=== PATIENT | female | born 1930 | race African-American/Black ===

== ENCOUNTER 2017-02-11 00:23 | Emergency (ER) | payer OTHER ==
--- NOTE | 2017-02-11 00:38 | PDOC ---
History of Present Illness - General Chief Complaint: Injury Stated Complaint: FALL Time Seen by Provider: 02/11/17 00:37 History Source: [facility] - History of Present Illness Initial Comments: 02/11/17 04:29 86-year-old female with history of type 2 diabetes, essential hypertension, TIA , CVA with residual deficit was found by jail staff on the floor. Patient was sent for CAT scan of head and x-ray of the left arm which patient reports pain. Denies LOC nausea, vomiting, abdominal pain. Past History - Past Medical History Allergies/Adverse Reactions: Allergies Allergy/AdvReac Type Severity Reaction Status Date / Time No Known Allergies Allergy Verified 02/11/17 00:37 Home Medications: Ambulatory Orders Glycerin/Propylene Glycol [Artificial Tears Drops] 1 drop OP TID 11/13/11 Simvastatin [Zocor] 10 mg PO HS 11/13/11 Polyethylene Glycol 3350 [Miralax 119 gm Btl -] 17 gm PO DAILY #0 bottle Cran/Vitc/Mannose/Fos/Bromeln [Uti-Stat Liquid] 3,875 mg PO BID 01/08/13 Sennosides [Senokot] 2 tab PO HS 01/08/13 Acetaminophen [Tylenol .Regular Strength -] 650 mg PO Q6H PRN #0 tablet Amlodipine Besylate [Norvasc -] 10 mg PO DAILY #0 tablet 01/11/13 Ascorbic Acid [Vitamin C] 500 mg PO DAILY #0 01/11/13 Aspirin [ASA -] 81 mg PO DAILY #0 tab.chew 01/11/13 Atorvastatin Ca [Lipitor] 10 mg PO HS #0 tablet 01/11/13 Docusate Sodium [Colace -] 100 mg PO BID #0 capsule 01/11/13 Heparin - 5,000 unit SQ BID #0 ml 01/11/13 Hypromellose 0.5% Opth Soln [Artificial Tears] 1 drop OU TID #0 drops 01/11/13 Levetiracetam [Keppra -] 500 mg PO BID #0 tablet 01/11/13 Losartan Potassium [Cozaar -] 100 mg PO DAILY #0 tablet 01/11/13 Metformin HCl [Glucophage -] 500 mg PO BIDAC #0 tablet 01/11/13 Multivitamins [Multivit ([facility] Formul[facility])] 1 udtab PO DAILY #0 tab 01/11/13 Cephalexin [Keflex] 500 mg PO BID #20 capsule 02/11/17 CVA: Yes (LT HEMIPLEGIA) Diabetes: Yes HTN: Yes Hypercholesterolemia: Yes Suicide Attempt (Hx): No - Surgical History Orthopedic Surgery: Yes (FR NECK OF FEMUR) - Psycho/Social/Smoking Cessation Hx Anxiety: No Suicidal Ideation: No Smoking Status: No Smoking History: Never smoked Have you smoked in the past 12 months: No Number of Cigarettes Smoked Daily: 0 Information on smoking cessation initiated: No Hx Alcohol Use: No Drug/Substance Use Hx: No Substance Use Type: None Hx Substance Use Treatment: No Review of Systems - Review of Systems Able to Perform ROS?: Yes Is the patient limited Guamanian proficient: No Constitutional: No: Symptoms Reported, See HPI, Chills, Diaphoresis, Fever, Loss of Appetite, Malaise, Night Sweats, Weakness, Weight Stable, Unintentional Wgt. Loss, Unexplained wgt Loss, Other HEENTM: No: Symptoms Reported, See HPI, Eye Pain, Blurred Vision, Tearing, Recent change in vision, Double Vision, Cataracts, Ear Pain, Ocular Prothesis, Ear Discharge, Nose Pain, Nose Congestion, Tinnitus, Nose Bleeding, Hearing Loss , Throat Pain, Throat Swelling, Mouth Pain, Dental Problems, Difficulty Swallowing, Mouth Swelling, Other Respiratory: No: Symptoms reported, See HPI, Cough, Orthopnea, Shortness of Breath, SOB with Exertion, SOB at Rest, Stridor, Wheezing, Productive cough, Hemoptysis, Other Cardiac (ROS): No: Chest Pain ABD/GI: No: Symptoms Reported, See HPI, Abdominal Distended, Abd. Pain w/ defecation, Blood Streaked Bowels, Constipated, Diarrhea, Difficulty Swallowing , Nausea, Poor Appetite, Poor Fluid Intake, Rectal Bleeding, Vomiting, Indigestion, Abdominal cramping, Tarry Stools, Other Musculoskeletal: Yes: Other (left arm pain) *Physical Exam - Vital Signs Last Vital Signs Temp Pulse Resp BP Pulse Ox 97.7 F 82 19 189/87 97 02/11/17 00:31 02/11/17 00:31 02/11/17 00:31 02/11/17 00:02/11/17 00:31 - Physical Exam General Appearance: Yes: Appropriately Dressed HEENT: positive: Normal ENT Inspection Respiratory/Chest: positive: Lungs Clear, Normal Breath Sounds Gastrointestinal/Abdominal: positive: Normal Bowel Sounds, Soft. negative: Tender Extremity: positive: Normal Capillary Refill, Normal Inspection, Pelvis Stable, Other (slight pain with ROM left wrist) Neurologic: positive: Alert ED Treatment Course - LABORATORY CBC & Chemistry Diagram: 02/11/17 03:00 02/11/17 03:00 Progress Note - Progress Note Progress Note: A: elderly fall P: cbc cmp cardiac EKG: NSR [address] head neg: old infarct xray left: degenerative changes Medical Decision Making - Medical Decision Making 02/11/17 06:43 patient is cleared for discharge. 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 Powell *DC/Admit/Observation/Transfer Diagnosis at time of Disposition: Fall in elderly patient, Left upper arm pain - Discharge Dispostion Disposition: [facility] F[facility] Condition at time of disposition: Fair - Prescriptions Prescriptions: Cephalexin [Keflex] 500 mg PO BID #20 capsule - Referrals Referrals: Kilo August MD [Primary Care Provider] - - Patient Instructions Printed Discharge Instructions: How to Prevent Falls Additional Instructions: CT head: negative XRays : negative All labs wnl. patient is cleared for discharge and to have follow up by Abby Perry.
[2017-02-11 00:39] VITALS: TEMP 97.7; BMI 29.1
--- NOTE | 2017-02-11 01:01 | PDOC ---
*Physical Exam - Vital Signs Last Vital Signs Temp Pulse Resp BP Pulse Ox 97.7 F 82 19 189/87 97 02/11/17 00:31 02/11/17 00:31 02/11/17 00:31 02/11/17 00:31 02/11/17 00:31 ED Treatment Course - LABORATORY CBC & Chemistry Diagram: 02/11/17 03:00 02/11/17 03:00 Medical Decision Making - Medical Decision Making 02/11/17 01:00 agree with care from MARTINE Ch *DC/Admit/Observation/Transfer Diagnosis at time of Disposition: Fall in elderly patient, Left upper arm pain - Discharge Dispostion Disposition: SNF FACILITY Condition at time of disposition: Stable - Prescriptions Prescriptions: Cephalexin [Keflex] 500 mg PO BID #20 capsule - Referrals Referrals: Kilo August MD [Primary Care Provider] - - Patient Instructions Printed Discharge Instructions: How to Prevent Falls Additional Instructions: CT head: negative XRays : negative All labs wnl. patient is cleared for discharge and to have follow up by Abby Velascocijoey.
[2017-02-11] MEDS ORDERED: ASPIRIN 81 MG CHEWABLE TABLETS PO ONE (03:37)
[2017-02-11 04:12] LABS: BASOPHIL 1.1 % (0-2.0); EOSINOPHIL 0.8 % (0-4.5); MCH 28.6 pg (25.7-33.7); MCHC 32.2 g/dl (32.0-36.0); MEAN CELL VOLUME 88.6 fl (80-96); NEUTROPHILS 66.4 % (42.8-82.8); PLATELET COUNT 332 K/MM3 (134-434); RDW 14.4 % (11.6-15.6); WHITE BLOOD COUNT 8.1 K/mm3 (4.0-10.0)
[2017-02-11 04:30] LABS: INR 1.07 (0.82-1.09); PROTHROMBIN TIME (PATIENT) 11.8 SEC (9.98-11.88)
[2017-02-11 04:42] LABS: ALBUMIN 3.7 g/dl (3.4-5.0); ANION GAP 8 (8-16); BILIRUBIN,TOTAL 0.5 mg/dL (0.2-1.0); CALCIUM 9.6 mg/dL (8.5-10.1); CO2 28 mmol/L (21-32); CREATININE 0.7 mg/dL (0.55-1.02); GLUCOSE,RANDOM 107 mg/dL (74-106); MAGNESIUM 1.5 mg/dL (1.8-2.4); SGOT/AST 12 U/L (15-37); SGPT/ALT 14 U/L (12-78)
[2017-02-11 04:44] LABS: ALK PHOS 62 U/L (45-117); TROPONIN I < 0.02 ng/ml (0.00-0.05)
[2017-02-11 06:23] LABS: URINE APPEARANCE SLCLOUDY; URINE BILIRUBIN NEGATIVE (NEGATIVE); URINE BLOOD 1+ (NEGATIVE); URINE COLOR YELLOW; URINE GLUCOSE (UA) NEGATIVE (NEGATIVE); URINE KETONE NEGATIVE (NEGATIVE); URINE NITRITE NEGATIVE (NEGATIVE); URINE PROTEIN NEGATIVE (NEGATIVE); URINE UROBILINOGEN NEGATIVE mg/dL (0.2-1.0)
[2017-02-11 06:39] LABS: URINE LEUK ESTERASE 1+ (NEGATIVE)
[2017-02-11 06:40] LABS: URINE BACTERIA MANY /hpf (NONE SEEN); URINE HYALINE CAST 1 /lpf; URINE MUCUS RARE; URINE RBC 4 /hpf (0-3); URINE WBC 52 /hpf (3-5)
[2017-02-11 07:02] VITALS: BP 154/79; PULSE 88
--- NOTE | 2017-02-11 13:01 | EKG ---
Test Reason : Blood Pressure : / mmHG Vent. Rate : 069 BPM Atrial Rate : 069 BPM P-R Int : 204 ms QRS Dur : 086 ms QT Int : 388 ms P-R-T Axes : 089 -22 040 degrees QTc Int : 415 ms NORMAL SINUS RHYTHM SEPTAL INFARCT (CITED ON OR BEFORE 13-NOV-2011) ABNORMAL ECG WHEN COMPARED WITH ECG OF 13-NOV-2011 20:08, NO SIGNIFICANT CHANGE WAS FOUND Confirmed by ANNA MARINELLI MD ([id number]) on 02/11/2017 1:00:57 PM Referred By: Confirmed By:ANNA MARINELLI MD
== END 2017-02-11 07:47 ==
LOC: JER 00:23
DX: M79.622 Pain in left upper arm (principal); W18.30XA Fall on same level, unspecified, initial encounter; Y93.9 Activity, unspecified; Y92.129 Unspecified place in nursing home as the place of occurrence of the external cause; E11.9 Type 2 diabetes mellitus without complications; I10 Essential (primary) hypertension; Z86.73 Personal history of transient ischemic attack (TIA), and cerebral infarction without residual deficits; E78.00 Pure hypercholesterolemia, unspecified; Z79.01 Long term (current) use of anticoagulants
CPT/HCPCS: 36415; 70450-TC; 73030-TC-LT; 73060-TC-LT; 73110-TC-LT; 73130-TC-LT; 80053; 81003; 81015; 82550; 83735; 84484; 85025; 85610; 93005; 93010; 99281-25

== ENCOUNTER 2019-07-26 09:00 | Emergency (ER) | payer OTHER ==
[2019-07-26 09:10] VITALS: TEMP 98; BMI 25.7
--- NOTE | 2019-07-26 09:28 | EKG ---
Test Reason : Blood Pressure : / mmHG Vent. Rate : 065 BPM Atrial Rate : 065 BPM P-R Int : 226 ms QRS Dur : 092 ms QT Int : 414 ms P-R-T Axes : 055 -33 048 degrees QTc Int : 430 ms SINUS RHYTHM WITH 1ST DEGREE A-V BLOCK WITH OCCASIONAL PREMATURE VENTRICULAR COMPLEXES LEFT AXIS DEVIATION MINIMAL VOLTAGE CRITERIA FOR LVH, MAY BE NORMAL VARIANT SEPTAL INFARCT (CITED ON OR BEFORE 13-NOV-2011) ABNORMAL ECG WHEN COMPARED WITH ECG OF 11-FEB-2017 03:54, PREMATURE VENTRICULAR COMPLEXES ARE NOW PRESENT Confirmed by Ryan Woo MD ([id number]) on 07/26/2019 9:27:22 AM Referred By: Confirmed By:Ryan Woo MD
--- NOTE | 2019-07-26 09:56 | PDOC ---
History of Present Illness - General Chief Complaint: Abnormal Lab Results (Outside) Stated Complaint: HIGH POTASSIUM Time Seen by Provider: 07/26/19 09:27 History Source: Patient Exam Limitations: No Limitations - History of Present Illness Initial Comments: 07/26/19 09:54 89y F with PMH of T2DM, CVA/TIA with L sided weakness, HLD, Dementia (AOx2 at baseline) presenting to ED from [facility] for hyperkalemia of 6.5 on labs today. No other complaints. Patient states that she is hungry. Past History - Past Medical History Allergies/Adverse Reactions: Allergies Allergy/AdvReac Type Severity Reaction Status Date / Time No Known Allergies Allergy Verified 07/26/19 09:08 Home Medications: Ambulatory Orders Sennosides [Senokot] 2 tab PO HS 01/08/13 Acetaminophen [Tylenol .Regular Strength -] 650 mg PO Q6H PRN #0 tablet Amlodipine Besylate [Norvasc -] 10 mg PO DAILY #0 tablet 01/11/13 Ascorbic Acid [Vitamin C] 500 mg PO DAILY #0 01/11/13 Aspirin [ASA -] 81 mg PO DAILY #0 tab.chew 01/11/13 Atorvastatin Ca [Lipitor] 10 mg PO HS #0 tablet 01/11/13 Heparin - 5,000 unit SQ BID #0 ml 01/11/13 Multivitamins [Multivit ([facility] Formulary)] 1 udtab PO DAILY #0 tab 01/11/13 levETIRAcetam [Keppra -] 500 mg PO BID #0 tablet 01/11/13 Docusate Sodium [Colace -] 200 mg PO HS 07/26/19 Donepezil HCl 10 mg PO DAILY 07/26/19 Latanoprost/Pf [Latanoprost 0.005% Eye Drop] 1 drop OU HS 07/26/19 Lidocaine [Aspercreme] 1 each TP DAILY 07/26/19 Memantine HCl [Namenda -] 5 mg PO BID 07/26/19 CVA: Yes (LT HEMIPLEGIA) COPD: No Diabetes: Yes HTN: Yes Hypercholesterolemia: Yes - Surgical History Orthopedic Surgery: Yes (FR NECK OF FEMUR) - Immunization History Immunization Up to Date: Yes - Psycho Social/Smoking Cessation Hx Smoking Status: No Smoking History: Smoker current status UNK Have you smoked in the past 12 months: No Number of Cigarettes Smoked Daily: 0 Information on smoking cessation initiated: No Hx Alcohol Use: No Drug/Substance Use Hx: No Substance Use Type: None Hx Substance Use Treatment: No Review of Systems - Review of Systems Able to Perform ROS?: No *Physical Exam - Vital Signs Last Vital Signs Temp Pulse Resp BP Pulse Ox 98 F 67 18 175/79 H 100 07/26/19 09:08 07/26/19 09:08 07/26/19 09:08 07/26/19 09:08 07/26/19 09:08 - Physical Exam General Appearance: Yes: Appropriately Dressed, Obese. No: Apparent Distress HEENT: positive: EOMI, MARLEE, Normal ENT Inspection, Other (poor dentition) Neck: positive: Trachea midline, Supple Respiratory/Chest: positive: Lungs Clear, Normal Breath Sounds. negative: Crackles, Rales, Rhonchi, Stridor, Wheezing Cardiovascular: positive: Regular Rhythm, Regular Rate, S1, S2. negative: Edema , JVD, Murmur Gastrointestinal/Abdominal: positive: Normal Bowel Sounds, Soft. negative: Tender Extremity: positive: Normal Capillary Refill. 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 pt is at baseline mental status. is refusing for labs to be drawn because she keeps getting blood drawn and she is hungry. ekg, labs orderd. will allow patient to eat and try again for labs. ekg; sinus with 1st degree block at 65bpm. no hyperacute t waves, p waves seen , normal intervals. no teresa or depressions. no twi. 07/26/19 10:46 LM for hcp. pt refusing blood draw. pt does not have capicity, iv placed. HCP called back stating if necessary, pt can be given medications to help her calm down. HCP also states that patient does not like blood being drawn because she gets labs daily and thinks it is draining her energy. 07/27/19 19:46 K 5.3 with slight hemolysis reported. hemoconcentrated. will give IV fluids. no ekg changes suggesting cardiac involvement. can be dc back to in. Discharge - Discharge Information Problems reviewed: Yes Clinical Impression/Diagnosis: Dehydration Condition: Good Disposition: CUSTODIAL FACILITY - Admission No - Follow up/Referral Referrals: Kilo August MD [Primary Care Provider] - - Patient Discharge Instructions Additional Instructions: The potassium was 5.3 and reported with slight hemolysis. She is hemoconcentrated, so she was given fluids. Please make sure she stays well hydrated. Thank you - Post Discharge Activity
--- NOTE | 2019-07-26 10:43 | PDOC ---
Documentation entered by Jordy Lopez SCRIBE, acting as scribe for Yordan العلي MD. Yordan العلي MD: This documentation has been prepared by the John castanon Daniel, SCRIBE, under my direction and personally reviewed by me in its entirety. I confirm that the documentation accurately reflects all work, treatment, procedures, and medical decision making performed by me. Attending Attestation - Resident Resident Name: Chani Akbar - ED Attending Attestation I have performed the following: I have examined & evaluated the patient, The case was reviewed & discussed with the resident, I agree w/resident's findings & plan, Exceptions are as noted - HPI HPI: 07/26/19 10:43 89 F with h/o DM, CVA/TIA, HLD, dementia, presenting to ED from [facility] for abnormal labs. Pt reportedly had K of 6.5 on routine labwork. Pt denies any complaints. - Physicial Exam PE: 07/26/19 10:48 "GENERAL: Awake, alert, and fully oriented, in no acute distress. HEAD: No signs of trauma EYES: PERRLA, EOMI, sclera anicteric, conjunctiva clear ENT: Auricles normal inspection, hearing grossly normal, nares patent, oropharynx clear without exudates. Moist mucosa NECK: Nontender, no stepoffs, Normal ROM, supple, no lymphadenopathy, JVD, or masses LUNGS: Breath sounds equal, clear to auscultation bilaterally. No wheezes, and no crackles HEART: Regular rate and rhythm, normal S1 and S2, no murmurs, rubs or gallops ABDOMEN: Soft, nontender, normoactive bowel sounds. No guarding, no rebound. No masses EXTREMITIES: Normal range of motion, no edema. No clubbing or cyanosis. No cords, erythema, or tenderness NEUROLOGICAL: Cranial nerves II through XII intact. 5/5 strength and sensation in all extremities, Normal speech, normal gait, normal cerebellar function SKIN: Warm, Dry, normal turgor, no rashes or lesions noted. - Medical Decision Making 07/26/19 10:48 89 F with hyperK on routine labs. - recheck labs 07/26/19 13:03 Labs today notable for K 5.3, slightly hemolyzed. Hyperkalemia on outpt labs likely spurious. Also found to be hemoconcentrated, likely 2/2 dehydration Will give IV fluid bolus Pt is well appearing, with normal vitals. Clinically stable for DC at this time. I discussed the physical exam findings, ancillary test results and final diagnoses with the patient. I answered all of the patient's questions. The patient was satisfied with the care received and felt comfortable with the discharge plan and treatment plan. The patient agrees to follow up with the primary care physician within 24-72 hours.
[2019-07-26 12:23] LABS: BASO % 0.7 % (0-2.0); EOS % 0.5 % (0-4.5); HEMATOCRIT 60.1 % (32.4-45.2); HEMOGLOBIN 18.9 GM/dL (10.7-15.3); LYMPH % 32.1 % (8-40); MCH 24.7 pg (25.7-33.7); MCHC 31.4 g/dl (32.0-36.0); MEAN CELL VOLUME 78.8 fl (80-96); MEAN PLT VOLUME 8.5 fl (7.5-11.1); MONO % 5.9 % (3.8-10.2); NEUT % 60.8 % (42.8-82.8); PLATELET COUNT 502 K/MM3 (134-434); RDW 16.1 % (11.6-15.6); WHITE BLOOD COUNT 8.1 K/mm3 (4.0-10.0)
[2019-07-26 12:41] LABS: RBC 7.63 M/mm3 (3.60-5.2)
[2019-07-26 12:57] LABS: ALBUMIN 3.5 g/dl (3.4-5.0); BILIRUBIN,TOTAL 0.8 mg/dL (0.2-1); BLOOD UREA NITROGEN 16.5 mg/dL (7-18); CALCIUM 9.6 mg/dL (8.5-10.1); CREATININE 0.8 mg/dL (0.55-1.3); POTASSIUM 5.3 mmol/L (3.5-5.1); TOT PROT 7.1 g/dl (6.4-8.2)
[2019-07-26] MEDS ORDERED: SODIUM CHLORIDE 1,000 ML IV STA (13:00)
[2019-07-26 14:20] VITALS: BP 165/78; PULSE 60
== END 2019-07-26 15:30 ==
LOC: JER 09:00
PROC: 3E0337Z Introduction of Electrolytic and Water Balance Substance into Peripheral Vein, Percutaneous Approach (ICD-10-PCS; principal; 2019-07-26)
DX: E86.0 Dehydration (principal); I10 Essential (primary) hypertension; E11.9 Type 2 diabetes mellitus without complications; F03.90 Unspecified dementia, unspecified severity, without behavioral disturbance, psychotic disturbance, mood disturbance, and anxiety; I69.854 Hemiplegia and hemiparesis following other cerebrovascular disease affecting left non-dominant side; E78.5 Hyperlipidemia, unspecified
CPT/HCPCS: 36415; 71045-TC-FY; 80053; 83735; 85025; 93005; 93010; 96360; 99284-25; J7030